=== PATIENT | female | born 1975 | race African-American/Black ===

== ENCOUNTER 2017-03-28 23:30 | Emergency (ER) | payer OTHER ==
[~2017-03-28] VITALS: Ht 157.5 cm; Wt 77.1 kg
[~2017-03-28 23:30] MED LIST: AMLO10TA4 PO; ATOR20TA PO; CARV6.25 PO; GABA-585 PO; INSU100C4 SQ; LOSA1TAB18 PO; METF-620 PO; NITR100C63 PO; ONDA4TAB10 SL; OXYC-323 PO
[2017-03-29] MEDS ORDERED: IV NORMAL SALINE 1000ML BAG 1,000 ML IV SCH (00:45)
[2017-03-29] MEDS ORDERED: MORPHINE SULFATE 2 MG/ML DISP.SYRIN. IV/SQ PRN (00:45)
[2017-03-29] MEDS ORDERED: ONDANSETRON PF 4 MG/2 ML VIAL. IV ONE (00:45)
--- NOTE | 2017-03-29 00:46 | PHYS DOC ---
Past Medical History Past Medical History: Diabetes-Type II, High Cholesterol, Hypertension, Other Additional Past Medical Histor: gastroparesis,Neuropathy Past Surgical History: Tubal ligation, Other Additional Past Surgical Histo: R BKA Alcohol Use: None Drug Use: None Adult General Chief Complaint Chief Complaint: ABDOMINAL PAIN HPI HPI Patient is a 41 year old female who presents with abdominal pain and nausea and vomiting. She started vomiting at 0800 am Tuesday morning. She has been vomiting all day. She has had some loose stool too. No travel; no one else sick at home. Denies bad food exposure. She has abdominal cramping. No blood in emesis or stool. no chest pain or SOA. No fever. Review of Systems Review of Systems Constitutional: Denies fever or chills Eyes: Denies change in visual acuity, redness, or eye pain HENT: Denies nasal congestion or sore throat Respiratory: Denies cough or shortness of breath Cardiovascular: No chest pain GI: POS abdominal pain, POS nausea, vomiting, bloody stools or diarrhea : Denies dysuria or hematuria Musculoskeletal: Denies back pain or joint pain Integument: Denies rash or skin lesions Neurologic: Denies headache, focal weakness or sensory changes Current Medications Current Medications Current Medications Medications (Trade) Dose Ordered Sig/Brandon Start Time Stop Time Status Last Admin Dose Admin Clonidine HCl (Catapres) 0.2 mg 1X ONCE 03/29/17 03:00 03/29/17 03:01 DC 03/29/17 03:13 0.2 MG Diphenhydramine HCl (Benadryl) 25 mg 1X ONCE 03/29/17 01:00 03/29/17 01:01 DC Hydromorphone HCl (Dilaudid) 2 mg 1X ONCE 03/29/17 02:15 03/29/17 02:16 DC 03/29/17 02:07 2 MG Metoclopramide HCl (Reglan) 10 mg 1X ONCE 03/29/17 01:00 03/29/17 01:01 DC Morphine Sulfate 2 mg PRN Q15MIN PRN 03/29/17 00:45 03/30/17 00:44 Ondansetron HCl (Zofran) 4 mg 1X ONCE 03/29/17 00:45 03/29/17 00:46 DC Promethazine HCl (Phenergan Im) 25 mg 1X ONCE 03/29/17 02:15 03/29/17 02:16 DC 03/29/17 02:08 25 MG Sodium Chloride 1,000 ml @ 1,000 mls/hr Q1H 03/29/17 00:45 03/29/17 01:44 DC Allergies Allergies Allergies Coded Allergies Type Severity Reaction Last Updated Verified No Known Drug Allergies 07/28/13 No Physical Exam Physical Exam Constitutional: Well developed, well nourished, no acute distress, non-toxic appearance. HENT: Normocephalic, atraumatic, bilateral external ears normal, oropharynx moist, no oral exudates, nose normal. Eyes: PERRLA, EOMI, conjunctiva normal, no discharge. Neck: Normal range of motion, no tenderness, supple, no stridor. Cardiovascular:Heart rate regular rhythm, no murmur Lungs & Thorax: Bilateral breath sounds clear to auscultation Abdomen: Bowel sounds normal, soft, minimal tenderness, no rebound or guarding. no masses, no pulsatile masses. Skin: Warm, dry, no erythema, no rash. Back: No tenderness, no CVA tenderness. Extremities: No tenderness, no cyanosis, no clubbing, ROM intact, no edema. Neurologic: Alert and oriented X 3, normal motor function, normal sensory function, no focal deficits noted. Psychologic: Affect normal, judgement normal, mood normal. Current Patient Data Vital Signs Vital Signs Date Time Temp Pulse Resp B/P (MAP) Pulse Ox O2 Delivery O2 Flow Rate FiO2 03/29/17 04:15 85 11 132/77 (95) Room Air 03/29/17 03:15 100 Lab Values Laboratory Tests Test 03/28/17 02:00 03/29/17 02:05 03/29/17 02:21 Urine Collection Type Unknown Urine Color Yellow Urine Clarity Clear Urine pH 7.0 Urine Specific [place] 1.020 Urine Protein >=300 mg/dL (NEG-TRACE) Urine Glucose (UA) 500 mg/dL (NEG) Urine Ketones (Stick) Trace mg/dL (NEG) Urine Blood Trace (NEG) Urine Nitrite Negative (NEG) Urine Bilirubin Negative (NEG) Urine Urobilinogen Dipstick 0.2 mg/dL (0.2 mg/dL) Urine Leukocyte Esterase Negative (NEG) Urine RBC Occ /HPF (0-2) Urine WBC Occ /HPF (0-4) Urine Squamous Epithelial Cells Few /LPF Urine Bacteria Few /HPF (0-FEW) Urine Mucus Slight /LPF White Blood Count 17.9 x10^3/uL (4.0-11.0) H Red Blood Count 4.11 x10^6/uL (3.50-5.40) Hemoglobin 10.6 g/dL (12.0-15.5) L Hematocrit 32.2 % (36.0-47.0) L Mean Corpuscular Volume 78 fL (79-100) L Mean Corpuscular Hemoglobin 26 pg (25-35) Mean Corpuscular Hemoglobin Concent 33 g/dL (31-37) Red Cell Distribution Width 17.7 % (11.5-14.5) H Platelet Count 402 x10^3/uL (140-400) H Neutrophils (%) (Auto) 94 % (31-73) H Lymphocytes (%) (Auto) 3 % (24-48) L Monocytes (%) (Auto) 3 % (0-9) Eosinophils (%) (Auto) 0 % (0-3) Basophils (%) (Auto) 0 % (0-3) Neutrophils # (Auto) 16.8 x10^3uL (1.8-7.7) H Lymphocytes # (Auto) 0.6 x10^3/uL (1.0-4.8) L Monocytes # (Auto) 0.4 x10^3/uL (0.0-1.1) Eosinophils # (Auto) 0.0 x10^3/uL (0.0-0.7) Basophils # (Auto) 0.1 x10^3/uL (0.0-0.2) Segmented Neutrophils % 97 % (35-66) H Lymphocytes % 2 % (24-48) L Monocytes % 1 % (0-10) Platelet Estimate Increased (ADEQUATE) Giant Platelets Occ Polychromasia Slight Anisocytosis Slight Sodium Level 137 mmol/L (136-145) Potassium Level 3.2 mmol/L (3.5-5.1) L Chloride Level 96 mmol/L (98-107) L Carbon Dioxide Level 25 mmol/L (21-32) Anion Gap 16 (6-14) H Blood Urea Nitrogen 10 mg/dL (7-20) Creatinine 0.9 mg/dL (0.6-1.0) Estimated GFR (Cockcroft-Gault) 83.1 BUN/Creatinine Ratio 11 (6-20) Glucose Level 262 mg/dL (70-99) H Calcium Level 9.9 mg/dL (8.5-10.1) Total Bilirubin 0.7 mg/dL (0.2-1.0) Aspartate Amino Transferase (AST) 17 U/L (15-37) Alanine Aminotransferase (ALT) 22 U/L (14-59) Alkaline Phosphatase 73 U/L (46-116) Creatine Kinase 202 U/L (26-192) H Creatine Kinase MB (Mass) 1.5 ng/mL (0.0-3.6) Creatine Kinase MB Relative Index 0.7 % (0-4) Troponin I Quantitative < 0.017 ng/mL (0.000-0.055) Total Protein 9.1 g/dL (6.4-8.2) H Albumin 4.7 g/dL (3.4-5.0) Albumin/Globulin Ratio 1.1 (1.0-1.7) Lipase 188 U/L (73-393) POC Urine HCG, Qualitative Hcg negative (Negative) Laboratory Tests 03/29/17 02:05 Laboratory Tests 03/29/17 02:05 Course & Med Decision Making Course & Med Decision Making Evaluated patient when brought back to room (delay due to holding patients and multiple admits). IV ordered but unable to obtain. IM dilaudid and phenergan. Clonidine po (has not taken her BP meds) Lab obtained. Her WBC is elevated. She was here in January and of note her WBC on presentation was 19.8 and then dropped after IV fluids. at 0445 AM: her BP 132/77. She is MARKEDLY IMPROVED. No more pain or vomiting. I OFFERED ADMISSION BUT PATIENT DECLINED. She wanted to try to go home today. I WARNED HER IF SHE WORSENS SHE WOULD NEED ADMISSION. Patient understands. Rx Phenergan sup written as she did not have those at home. [place] po for pain. I have spoken with the patient and/or caregivers. I have explained the patient' s condition, diagnosis and treatment plan based on the information available to me at this time. I have answered the patient's and/or caregiver's questions and addressed any concerns. The patient and/or caregivers have as good an understanding of the patient's diagnosis, condition and treatment plan as can be expected at this point. The patient's condition is stable and appropriate for discharge from the emergency department. The patient will pursue further outpatient evaluation with the primary care physician or other designated or consulting physician as outlined in the discharge instructions. The patient and/or caregivers are agreeable to this plan of care and follow-up instructions have been explained in detail. The patient and/or caregivers have received these instructions in written format and have expressed an understanding of the discharge instructions. The patient and/or caregivers are aware that any significant change in condition or worsening of symptoms should prompt an immediate return to this or the closest emergency department or a call to 911. Dragon Disclaimer Dragon Disclaimer This electronic medical record was generated, in whole or in part, using a voice recognition dictation system. Departure Departure Impression: Primary Impression: Cyclic vomiting syndrome Disposition: 01 HOME, SELF-CARE Condition: IMPROVED Referrals: AUDREY FAGAN MD (PCP) Patient Instructions: Cyclic Vomiting Syndrome Additional Instructions: IF YOUR SYMPTOMS WORSEN YOU NEED TO RETURN IMMEDIATELY Scripts Hydrocodone/Apap 5-325 (NORCO 5-325 TABLET) 1 Each Tablet 1-2 TAB PO Q4-6HRS, #20 TAB Prov: BERTIN ROMAN MD 03/29/17 Promethazine HCl (Phenergan) 25 Mg Supp.rect 25 MG RC PRN Q6-8HRS Y for NAUSEA, #10 SUPP.RECT Prov: BERTIN ROMAN MD 03/29/17 Problem Qualifiers Primary Impression: Cyclic vomiting syndrome Vomiting Intractability: intractable Nausea presence: with nausea Qualified Codes: G43.A1 - Cyclical vomiting, intractable BERTIN ROMAN MD Mar 29, 2017 00:46
[2017-03-29] MEDS ORDERED: diphenhydrAMINE 50 MG/ML VIAL IVP ONE (01:00)
[2017-03-29] MEDS ORDERED: METOCLOPRAMIDE HCL 10 MG/2 ML VIAL. IV ONE (01:00)
[2017-03-29 02:09] LABS: BASO # 0.1 x10^3/uL (0.0-0.2); BASO % 0 % (0-3); EOS % 0 % (0-3); HEMATOCRIT 32.2 % (36.0-47.0); HEMOGLOBIN 10.6 g/dL (12.0-15.5); LYMPH # 0.6 x10^3/uL (1.0-4.8); LYMPH % 3 % (24-48); MEAN CORPUSCULAR HEMOGLOBIN 26 pg (25-35); MEAN CORPUSCULAR HGB CONC 33 g/dL (31-37); MEAN CORPUSCULAR VOLUME 78 fL (79-100); MONO % 3 % (0-9); NEUT % 94 % (31-73); PLATELET COUNT 402 x10^3/uL (140-400); RED BLOOD COUNT 4.11 x10^6/uL (3.50-5.40); RED CELL DISTRIBUTION WIDTH 17.7 % (11.5-14.5); WHITE BLOOD COUNT 17.9 x10^3/uL (4.0-11.0)
[2017-03-29 02:10] LABS: BILIRUBIN,URINE NEGATIVE (NEG); GLUCOSE,URINE 500 mg/dL (NEG); NITRITE,URINE NEGATIVE (NEG); PROTEIN,URINE >=300 mg/dL (NEG-TRACE); UROBILINOGEN,URINE 0.2 mg/dL (0.2 mg/dL)
[2017-03-29] MEDS ORDERED: HYDROmorphone 2 MG/ML VIAL IM ONE (02:15)
[2017-03-29] MEDS ORDERED: PROMETHAZINE IM 25 MG/ML VIAL IM ONE (02:15)
[2017-03-29 02:17] LABS: BACTERIA,URINE FEW /HPF (0-FEW); RBC,URINE OCC /HPF (0-2); SQUAMOUS EPITHELIAL CELL,UR FEW /LPF; WBC,URINE OCC /HPF (0-4)
[2017-03-29 02:23] LABS: CALCIUM 9.9 mg/dL (8.5-10.1); CREATININE 0.9 mg/dL (0.6-1.0); GFR 83.1; POTASSIUM 3.2 mmol/L (3.5-5.1)
[2017-03-29 02:29] LABS: ALBUMIN 4.7 g/dL (3.4-5.0); ALBUMIN/GLOBULIN RATIO 1.1 (1.0-1.7); TOTAL BILIRUBIN 0.7 mg/dL (0.2-1.0); TOTAL PROTEIN 9.1 g/dL (6.4-8.2)
[2017-03-29 02:37] LABS: CKMB MASS 1.5 ng/mL (0.0-3.6)
[2017-03-29] MEDS ORDERED: cloNIDine HCL 0.1 MG TABLET PO ONE (03:00)
[2017-03-29 04:15] VITALS: BP 132/77
[2017-03-29] MEDS ORDERED: PROM25SU32 RC (04:55)
[2017-03-29] MEDS ORDERED: HYDR-971 PO (04:55)
[2017-03-29 04:56] LABS: ANISOCYTOSIS SLIGHT; PLT ESTIMATE INCREASED (ADEQUATE); POLYCHROMASIA SLIGHT
== END 2017-03-29 06:19 | disposition home or self-care (01) ==
LOC: ER 23:30
DX: G43.A1 Cyclical vomiting, in migraine, intractable (principal); R10.9 Unspecified abdominal pain; E78.00 Pure hypercholesterolemia, unspecified; E11.40 Type 2 diabetes mellitus with diabetic neuropathy, unspecified; I10 Essential (primary) hypertension; E11.43 Type 2 diabetes mellitus with diabetic autonomic (poly)neuropathy; K31.84 Gastroparesis; Z89.511 Acquired absence of right leg below knee; Z98.51 Tubal ligation status
CPT/HCPCS: 36415; 80053; 81001; 81025; 82553; 83690; 84484; 85007; 85025; 96372; 99284; J1170; J2550

== ENCOUNTER 2018-09-11 12:41 | Inpatient (IN) | payer MEDICARE, OTHER ==
[~2018-09-11] VITALS: Ht 160 cm; Wt 77.6 kg
[~2018-09-11 12:41] MED LIST changes: +HYDR-3164 PO; -LOSA1TAB18 PO; +LOSA1TAB25 PO; -METF-620 PO; +METF10007 PO; -OXYC-323 PO; +OXYC1TAB15 PO; +PROM25SU32 RC
[2018-09-11] MEDS ORDERED: IV NORMAL SALINE 1000ML BAG 1,000 ML IV ONE ×3 (14:00→17:45)
[2018-09-11] MEDS ORDERED: PROCHLORPERAZINE 10 MG/2 ML VIAL. IV ONE (14:00)
[2018-09-11] MEDS ORDERED: ONDANSETRON PF 4 MG/2 ML VIAL. IV ONE ×2 (14:00→17:15)
[2018-09-11] MEDS ORDERED: FAMOTIDINE 20 MG/2 ML VIAL IVP ONE (14:00)
[2018-09-11 14:10] LABS: BASO # 0.1 x10^3/uL (0.0-0.2); BASO % 0 % (0-3); EOS # 0.1 x10^3/uL (0.0-0.7); EOS % 0 % (0-3); HEMATOCRIT 40.4 % (36.0-47.0); HEMOGLOBIN 13.6 g/dL (12.0-15.5); LYMPH # 1.1 x10^3/uL (1.0-4.8); LYMPH % 4 % (24-48); MEAN CORPUSCULAR HEMOGLOBIN 28 pg (25-35); MEAN CORPUSCULAR HGB CONC 34 g/dL (31-37); MEAN CORPUSCULAR VOLUME 83 fL (79-100); MONO # 1.4 x10^3/uL (0.0-1.1); MONO % 5 % (0-9); NEUT # 24.4 x10^3uL (1.8-7.7); NEUT % 90 % (31-73); PLATELET COUNT 409 x10^3/uL (140-400); RED BLOOD COUNT 4.89 x10^6/uL (3.50-5.40); RED CELL DISTRIBUTION WIDTH 16.5 % (11.5-14.5); WHITE BLOOD COUNT 27.1 x10^3/uL (4.0-11.0)
[2018-09-11 14:27] LABS: CALCIUM 9.8 mg/dL (8.5-10.1); CREATININE 0.9 mg/dL (0.6-1.0); GFR 82.7; POTASSIUM 3.5 mmol/L (3.5-5.1)
[2018-09-11 14:31] LABS: ALBUMIN 4.2 g/dL (3.4-5.0); ALBUMIN/GLOBULIN RATIO 0.8 (1.0-1.7); TOTAL BILIRUBIN 0.8 mg/dL (0.2-1.0); TOTAL PROTEIN 9.4 g/dL (6.4-8.2)
[2018-09-11] MEDS ORDERED: IOHEXOL 300 MG/ML 100ML VIAL. IV ONE (15:30)
--- NOTE | 2018-09-11 16:24 | RAD ---
CT abdomen pelvis without contrast dated 09/11/2018. Comparison made to 03/23/2014. CLINICAL INDICATION: Abdominal pain. TECHNIQUE: Per contiguous axial imaging of the abdomen and pelvis performed after the intravenous administration of 75 cc Omnipaque 300. The scanner failed after initial injection, therefore delayed imaging was performed. One or more of the following individualized dose reduction techniques were utilized for this examination: 1. Automated exposure control 2. Adjustment of the mA and/or kV according to patient size 3. Use of iterative reconstruction technique FINDINGS: Limited images of lung bases show patchy groundglass opacity in the right middle lobe and left lower lobe. Heart size upper limits of normal. No pleural or pericardial effusion. Liver, spleen, pancreas, adrenal glands and kidneys are unremarkable. There is contrast material filling the bilateral renal collecting systems. A low-density nodule at the upper pole left kidney is most consistent with cyst. No hydronephrosis. Unopacified GI tract normal in caliber and contour. No focal bowel wall thickening. No inflammatory stranding in the mesentery. The appendix is normal in caliber. No ascites or lymphadenopathy. Abdominal aorta normal in caliber. Images of pelvis show nondistended urinary bladder. Uterus and adnexa are unremarkable. No free fluid or pelvic lymphadenopathy. Bone windows show no acute findings. Mild multilevel spondylosis. IMPRESSION: 1. No acute abnormality of abdomen or pelvis. Normal appendix. 2. Mild patchy groundglass passive both lung bases, nonspecific. Consider infectious or inflammatory etiology. Electronically signed by: Los Dickinson MD (09/11/2018 4:21 PM) [id number]
[2018-09-11] MEDS ORDERED: METOCLOPRAMIDE HCL 10 MG/2 ML VIAL. IV ONE (17:00)
--- NOTE | 2018-09-11 17:17 | PHYS DOC ---
Past Medical History Past Medical History: Diabetes-Type II, High Cholesterol, Hypertension, Other Additional Past Medical Histor: gastroparesis,Neuropathy Past Surgical History: Tubal ligation, Other Additional Past Surgical Histo: R BKA Alcohol Use: None Drug Use: None Adult General Chief Complaint Chief Complaint: ABDOMINAL PAIN HPI HPI Patient is a 42 year old female with history of diabetes type 2, hypertension, gastroparesis, high cholesterol, right below the knee amputation, who presents to the ED today complaining of nausea, vomiting, and epigastric abdominal pain since yesterday. Patient states she has tried taking her Zofran with no relief. She states she is currently not on any diabetes medicine because her doctor took her off the medications after her blood glucose got stabilized. Review of Systems Review of Systems Constitutional: Denies fever or chills [] Eyes: Denies change in visual acuity, redness, or eye pain [] HENT: Denies nasal congestion or sore throat [] Respiratory: Denies cough or shortness of breath [] Cardiovascular: No additional information not addressed in HPI [] GI: Reports abdominal pain, nausea, vomiting, epigastric pain, denies bloody stools or diarrhea [] : Denies dysuria or hematuria [] Musculoskeletal: Denies back pain or joint pain [] Integument: Denies rash or skin lesions [] Neurologic: Denies headache, focal weakness or sensory changes [] All other systems were reviewed and found to be within normal limits, except as documented in this note. Current Medications Current Medications Current Medications Medications (Trade) Dose Ordered Sig/Brandon Start Time Stop Time Status Last Admin Dose Admin Famotidine (Pepcid Vial) 20 mg 1X ONCE 09/11/18 14:00 09/11/18 14:01 DC 09/11/18 14:06 20 MG Iohexol (Omnipaque 300 Mg/ml) 75 ml 1X ONCE 09/11/18 15:30 09/11/18 15:31 DC 09/11/18 15:34 75 ML Metoclopramide HCl (Reglan Vial) 10 mg 1X ONCE 09/11/18 17:00 09/11/18 17:01 DC Ondansetron HCl (Zofran) 4 mg 1X ONCE 09/11/18 17:15 09/11/18 17:16 DC 09/11/18 17:13 4 MG Prochlorperazine Edisylate (Compazine) 10 mg 1X ONCE 09/11/18 14:00 09/11/18 14:01 DC 09/11/18 14:06 10 MG Sodium Chloride 1,000 ml @ 1,000 mls/hr 1X ONCE 09/11/18 15:30 09/11/18 16:29 DC 09/11/18 16:02 1,000 MLS/HR Allergies Allergies Allergies Coded Allergies Type Severity Reaction Last Updated Verified metoclopramide Allergy Intermediate 09/11/18 Yes Physical Exam Physical Exam Constitutional: Well developed, well nourished, no acute distress, non-toxic appearance. [] HENT: Normocephalic, atraumatic, bilateral external ears normal, oropharynx moist, no oral exudates, nose normal. [] Eyes: PERRLA, EOMI, conjunctiva normal, no discharge. [] Neck: Normal range of motion, no tenderness, supple, no stridor. [] Cardiovascular:Heart rate regular rhythm, no murmur [] Lungs & Thorax: Bilateral breath sounds clear to auscultation [] Abdomen: Bowel sounds normal, soft, mild epigastric tenderness, no right upper quadrant or right lower quadrant tenderness, no masses, no pulsatile masses. [] Skin: Warm, dry, no erythema, no rash. [] Back: No tenderness, no CVA tenderness. [] Extremities: No tenderness, no cyanosis, no clubbing, ROM intact, no edema. Right below the knee amputation noted. Neurologic: Alert and oriented X 3, normal motor function, normal sensory function, no focal deficits noted. [] Psychologic: anxious Current Patient Data Vital Signs Vital Signs Date Time Temp Pulse Resp B/P (MAP) Pulse Ox O2 Delivery O2 Flow Rate FiO2 09/11/18 13:11 99.3 125 20 166/109 (128) 100 Room Air 99.3 Lab Values Laboratory Tests Test 09/11/18 13:55 White Blood Count 27.1 x10^3/uL (4.0-11.0) H Red Blood Count 4.89 x10^6/uL (3.50-5.40) Hemoglobin 13.6 g/dL (12.0-15.5) Hematocrit 40.4 % (36.0-47.0) Mean Corpuscular Volume 83 fL (79-100) Mean Corpuscular Hemoglobin 28 pg (25-35) Mean Corpuscular Hemoglobin Concent 34 g/dL (31-37) Red Cell Distribution Width 16.5 % (11.5-14.5) H Platelet Count 409 x10^3/uL (140-400) H Neutrophils (%) (Auto) 90 % (31-73) H Lymphocytes (%) (Auto) 4 % (24-48) L Monocytes (%) (Auto) 5 % (0-9) Eosinophils (%) (Auto) 0 % (0-3) Basophils (%) (Auto) 0 % (0-3) Neutrophils # (Auto) 24.4 x10^3uL (1.8-7.7) H Lymphocytes # (Auto) 1.1 x10^3/uL (1.0-4.8) Monocytes # (Auto) 1.4 x10^3/uL (0.0-1.1) H Eosinophils # (Auto) 0.1 x10^3/uL (0.0-0.7) Basophils # (Auto) 0.1 x10^3/uL (0.0-0.2) Sodium Level 136 mmol/L (136-145) Potassium Level 3.5 mmol/L (3.5-5.1) Chloride Level 95 mmol/L (98-107) L Carbon Dioxide Level 24 mmol/L (21-32) Anion Gap 17 (6-14) H Blood Urea Nitrogen 18 mg/dL (7-20) Creatinine 0.9 mg/dL (0.6-1.0) Estimated GFR (Cockcroft-Gault) 82.7 BUN/Creatinine Ratio 20 (6-20) Glucose Level 165 mg/dL (70-99) H Calcium Level 9.8 mg/dL (8.5-10.1) Total Bilirubin 0.8 mg/dL (0.2-1.0) Aspartate Amino Transferase (AST) 28 U/L (15-37) Alanine Aminotransferase (ALT) 13 U/L (14-59) L Alkaline Phosphatase 82 U/L (46-116) Total Protein 9.4 g/dL (6.4-8.2) H Albumin 4.2 g/dL (3.4-5.0) Albumin/Globulin Ratio 0.8 (1.0-1.7) L Lipase 71 U/L (73-393) L Ethyl Alcohol Level < 10 mg/dL (0-10) Laboratory Tests 09/11/18 13:55 Laboratory Tests 09/11/18 13:55 EKG EKG [] Radiology/Procedures Radiology/Procedures []PROCEDURE: CT ABD PELV W/ IV CONTRST ONLY CT abdomen pelvis without contrast dated 09/11/2018. Comparison made to 03/23/2014. CLINICAL INDICATION: Abdominal pain. TECHNIQUE: Per contiguous axial imaging of the abdomen and pelvis performed after the intravenous administration of 75 cc Omnipaque 300. The scanner failed after initial injection, therefore delayed imaging was performed. One or more of the following individualized dose reduction techniques were utilized for this examination: 1. Automated exposure control 2. Adjustment of the mA and/or kV according to patient size 3. Use of iterative reconstruction technique FINDINGS: Limited images of lung bases show patchy groundglass opacity in the right middle lobe and left lower lobe. Heart size upper limits of normal. No pleural or pericardial effusion. Liver, spleen, pancreas, adrenal glands and kidneys are unremarkable. There is contrast material filling the bilateral renal collecting systems. A low-density nodule at the upper pole left kidney is most consistent with cyst. No hydronephrosis. Unopacified GI tract normal in caliber and contour. No focal bowel wall thickening. No inflammatory stranding in the mesentery. The appendix is normal in caliber. No ascites or lymphadenopathy. Abdominal aorta normal in caliber. Images of pelvis show nondistended urinary bladder. Uterus and adnexa are unremarkable. No free fluid or pelvic lymphadenopathy. Bone windows show no acute findings. Mild multilevel spondylosis. IMPRESSION: 1. No acute abnormality of abdomen or pelvis. Normal appendix. 2. Mild patchy groundglass passive both lung bases, nonspecific. Consider infectious or inflammatory etiology. Electronically signed by: Los Dickinson MD (09/11/2018 4:21 PM) [id number] DICTATED and SIGNED BY: LOS DICKINSON MD DATE: 09/11/18 162 Course & Med Decision Making Course & Med Decision Making Pertinent Labs and Imaging studies reviewed. (See chart for details) This is a 42-year-old female patient presenting to the ED today with nausea, vomiting, epigastric abdominal pain, symptoms began yesterday. Patient has history of gastroparesis. CBC with a WBC of 27.1 platelet count 409, CMP with glucose of 165, anion gap is 17, creatinine and BUN are normal. Urine not provided. Patient does not appear septic. I suspect the leukocytosis could be from the vomiting and dehydration. Ct of the abdomen and pelvic is negative for any acute findings. Noted for Mild patchy groundglass passive both lung bases, nonspecific. Consider infectious or inflammatory etiology.-chest xray ordered. Patient was given IV fluids 2 L compazine, zofran she is still vomiting. Consulted with Dr. Olivarez who accepted patient for admission. Dragon Disclaimer Dragon Disclaimer This electronic medical record was generated, in whole or in part, using a voice recognition dictation system. Departure Departure Impression: Primary Impression: Hypertension Additional Impressions: Gastroparesis Intractable nausea and vomiting Disposition: ADMITTED INPATIENT Condition: STABLE Referrals: AUDREY FAGAN MD (PCP) Problem Qualifiers Primary Impression: Hypertension Hypertension type: unspecified Qualified Codes: I10 - Essential (primary) hypertension Additional Impressions: Intractable nausea and vomiting Vomiting type: unspecified Qualified Codes: R11.2 - Nausea with vomiting, unspecified RUSS RAMÍREZ STOCK FEEDER Sep 11, 2018 17:17
--- NOTE | 2018-09-11 17:34 | RAD ---
Single view chest dated 09/11/2018: No comparison available. Clinical Indication: Epigastric pain. Findings: Single upright portable exam of the chest was performed. Heart size and mediastinal contours are within normal limits given technique. The lungs are clear without evidence of focal consolidation. Vascular interstitium is within normal limits. Impression:: Negative portable chest. Electronically signed by: Los Dickinson MD (09/11/2018 5:32 PM) [id number]
[2018-09-11] MEDS ORDERED: PROCHLORPERAZINE 10 MG/2 ML VIAL. IV PRN (17:45)
[2018-09-11] MEDS ORDERED: ONDANSETRON PF 4 MG/2 ML VIAL. IV PRN ×2 (17:45)
--- NOTE | 2018-09-11 17:51 | PDOC1 ---
History and Physical Date of Admission Date of Admission DATE: 09/11/18 TIME: 17:46 Identification/Chief Complaint Chief Complaint Vomiting 3 days, one episode diarrhea Source Source: Caregiver, Chart review, Patient History of Present Illness History of Present Illness 42-year-old -[place] female whom in the past charts carries a diagnosis of gastroparesis, last gastric empty test was maybe 2013 or 2014 which was delayed, cyclic vomiting syndrome per old chart. Last time I saw her was maybe 2016. She admits that she goes to usually. She comes in because of 3 day history emesis with one episode diarrhea but no fevers. No recent sick contacts or travels. She thinks is another episode of her gastroparesis. She is curling up, bucket at bedside. . CT scan abdomen is negative. labs shows a leukocytosis of 27.1 with no source. Not on any prednisone at home Her home meds only include the following Norvasc 10, Coreg 12.5 twice a day, Zofran, Zoloft 50 daily at bedtime and gabapentin 100 twice a day. Patient admitted for symptomatically treatment with GI consulted. SHe is actually off insulin or OHA because her last hemoglobin A1c was very good and she was taken off of any DM medication Past Medical History Cardiovascular: HTN GI: Other Psych: Depression Endocrine: Diabetes Past Surgical History Past Surgical History: Other Family History Family History: Cancer, Diabetes, Hypertension Social History Smoke: No ALCOHOL: none Drugs: None Current Problem List Problem List Problems Medical Problems: (1) Gastroparesis Status: Acute (2) Hypertension Status: Acute Current Medications Current Medications Current Medications Sodium Chloride 1,000 ml @ 1,000 mls/hr 1X ONCE IV Last administered on at 14:06; Start 09/11/18 at 14:00; Stop 09/11/18 at 14:59; Status DC Famotidine (Pepcid Vial) 20 mg 1X ONCE IVP Last administered on 09/11/18at 14: 06; Start 09/11/18 at 14:00; Stop 09/11/18 at 14:01; Status DC Ondansetron HCl (Zofran) 4 mg 1X ONCE IV Last administered on 09/11/18at 14:06 ; Start 09/11/18 at 14:00; Stop 09/11/18 at 14:01; Status DC Prochlorperazine Edisylate (Compazine) 10 mg 1X ONCE IV Last administered on at 14:06; Start 09/11/18 at 14:00; Stop 09/11/18 at 14:01; Status DC Iohexol (Omnipaque 300 Mg/ml) 75 ml 1X ONCE IV Last administered on 09/11/18at 15:34; Start 09/11/18 at 15:30; Stop 09/11/18 at 15:31; Status DC Sodium Chloride 1,000 ml @ 1,000 mls/hr 1X ONCE IV Last administered on at 16:02; Start 09/11/18 at 15:30; Stop 09/11/18 at 16:29; Status DC Metoclopramide HCl (Reglan Vial) 10 mg 1X ONCE IV ; Start 09/11/18 at 17:00; Stop 09/11/18 at 17:01; Status DC Ondansetron HCl (Zofran) 4 mg 1X ONCE IV Last administered on 09/11/18at 17:13 ; Start 09/11/18 at 17:15; Stop 09/11/18 at 17:16; Status DC Ondansetron HCl (Zofran) 4 mg PRN Q8HRS PRN IV NAUSEA/VOMITING; Start 09/11/18 at 17:45; Stop 09/11/18 at 17:45; Status DC Prochlorperazine Edisylate (Compazine) 10 mg TID PRN IV NAUSEA; Start 09/11/18 at 17:45 Sodium Chloride 1,000 ml @ 125 mls/hr 1X ONCE IV ; Start 09/11/18 at 17:45; Stop 09/12/18 at 01:44 Ondansetron HCl (Zofran) 4 mg PRN Q6HRS PRN IV NAUSEA/VOMITING; Start 09/11/18 at 17:45; Status UNV Ondansetron HCl (Zofran) 4 mg PRN Q6HRS PRN IV NAUSEA/VOMITING; Start 09/11/18 at 17:45; Status UNV Metoclopramide HCl (Reglan) 5 mg TIDACHC PO ; Start 09/11/18 at 21:00; Status UNV Sodium Chloride 1,000 ml @ 100 mls/hr Q10H IV ; Start 09/11/18 at 17:45; Status UNV Active Scripts Active [place] 5-325 Tablet (Acetaminophen/Hydrocodone Bitart) 1 Each Tablet 1-2 Tab PO Q4-6HRS Phenergan (Promethazine HCl) 25 Mg Supp.rect 25 Mg RC PRN Q6-8HRS PRN Reported Novolog (Insulin Aspart) 100 Unit/1 Ml Cartridge 8 Unit SQ TIDAFTMEAL PRN Percocet 5-325 Mg Tablet (Oxycodone/Acetaminophen) 1 Each Tablet 1 Tab PO QID Coreg (Carvedilol) 6.25 Mg Tablet 1 Tab PO BID Lipitor (Atorvastatin Calcium) 20 Mg Tablet 1 Tab PO DAILY Losartan-Hctz 100-12.5 Mg Tab (Losartan/Hydrochlorothiazide) 1 Each Tablet 1 Tab PO DAILY Gabapentin 100 Mg Capsule 100 Mg PO TID Zofran Odt (Ondansetron) 4 Mg Tab.rapdis 1 Tab SL Q8HRS Norvasc (Amlodipine Besylate) 10 Mg Tablet 10 Mg PO DAILY Metformin Hcl 1,000 Mg Tablet 1,000 Mg PO [id number] Allergies Allergies: Coded Allergies: metoclopramide (Verified Allergy, Intermediate, 09/11/18) ROS Review of System As per history of present illness, the rest of ROS 14 point negative Physical Exam General: Alert, Oriented X3, Cooperative, Other (curling up with bucket at bedside) HEENT: PERRLA Lungs: Clear to auscultation, Normal air movement Heart: S1S2, RRR, no thrills, no rubs, no gallops, no murmurs Cardiovascular: S1, S2 Breasts: Normal, Rt breast nml w/o mass, Lt breast nml w/o mass, Nipples normal Abdomen: Normal bowel sounds, Soft, No hepatosplenomegaly, No masses, Other ( voluntary guarding on my palpation but soft no rebound) Rectal Exam: not examined PELVIC: Nml ext genitalia Extremities: No clubbing, No cyanosis, No edema, Normal pulses, No tenderness/ swelling Skin: No rashes, No breakdown, No significant lesion Neuro: Normal gait, Normal speech, Strength at 5/5 X4 ext, Normal tone, Sensation intact, Cranial nerves 3-12 NL, Reflexes 2+ Psych/Mental Status: Mental status NL, Mood NL Vitals Vitals Vital Signs Date Time Temp Pulse Resp B/P (MAP) Pulse Ox O2 Delivery O2 Flow Rate FiO2 09/11/18 13:11 99.3 125 20 166/109 (128) 100 Room Air 99.3 Labs Labs Laboratory Tests Test 09/11/18 13:55 White Blood Count 27.1 x10^3/uL (4.0-11.0) Red Blood Count 4.89 x10^6/uL (3.50-5.40) Hemoglobin 13.6 g/dL (12.0-15.5) Hematocrit 40.4 % (36.0-47.0) Mean Corpuscular Volume 83 fL (79-100) Mean Corpuscular Hemoglobin 28 pg (25-35) Mean Corpuscular Hemoglobin Concent 34 g/dL (31-37) Red Cell Distribution Width 16.5 % (11.5-14.5) Platelet Count 409 x10^3/uL (140-400) Neutrophils (%) (Auto) 90 % (31-73) Lymphocytes (%) (Auto) 4 % (24-48) Monocytes (%) (Auto) 5 % (0-9) Eosinophils (%) (Auto) 0 % (0-3) Basophils (%) (Auto) 0 % (0-3) Neutrophils # (Auto) 24.4 x10^3uL (1.8-7.7) Lymphocytes # (Auto) 1.1 x10^3/uL (1.0-4.8) Monocytes # (Auto) 1.4 x10^3/uL (0.0-1.1) Eosinophils # (Auto) 0.1 x10^3/uL (0.0-0.7) Basophils # (Auto) 0.1 x10^3/uL (0.0-0.2) Sodium Level 136 mmol/L (136-145) Potassium Level 3.5 mmol/L (3.5-5.1) Chloride Level 95 mmol/L (98-107) Carbon Dioxide Level 24 mmol/L (21-32) Anion Gap 17 (6-14) Blood Urea Nitrogen 18 mg/dL (7-20) Creatinine 0.9 mg/dL (0.6-1.0) Estimated GFR (Cockcroft-Gault) 82.7 BUN/Creatinine Ratio 20 (6-20) Glucose Level 165 mg/dL (70-99) Calcium Level 9.8 mg/dL (8.5-10.1) Total Bilirubin 0.8 mg/dL (0.2-1.0) Aspartate Amino Transf (AST/SGOT) 28 U/L (15-37) Alanine Aminotransferase (ALT/SGPT) 13 U/L (14-59) Alkaline Phosphatase 82 U/L (46-116) Total Protein 9.4 g/dL (6.4-8.2) Albumin 4.2 g/dL (3.4-5.0) Albumin/Globulin Ratio 0.8 (1.0-1.7) Lipase 71 U/L (73-393) Ethyl Alcohol Level < 10 mg/dL (0-10) Laboratory Tests Test 09/11/18 13:55 White Blood Count 27.1 x10^3/uL (4.0-11.0) Red Blood Count 4.89 x10^6/uL (3.50-5.40) Hemoglobin 13.6 g/dL (12.0-15.5) Hematocrit 40.4 % (36.0-47.0) Mean Corpuscular Volume 83 fL (79-100) Mean Corpuscular Hemoglobin 28 pg (25-35) Mean Corpuscular Hemoglobin Concent 34 g/dL (31-37) Red Cell Distribution Width 16.5 % (11.5-14.5) Platelet Count 409 x10^3/uL (140-400) Neutrophils (%) (Auto) 90 % (31-73) Lymphocytes (%) (Auto) 4 % (24-48) Monocytes (%) (Auto) 5 % (0-9) Eosinophils (%) (Auto) 0 % (0-3) Basophils (%) (Auto) 0 % (0-3) Neutrophils # (Auto) 24.4 x10^3uL (1.8-7.7) Lymphocytes # (Auto) 1.1 x10^3/uL (1.0-4.8) Monocytes # (Auto) 1.4 x10^3/uL (0.0-1.1) Eosinophils # (Auto) 0.1 x10^3/uL (0.0-0.7) Basophils # (Auto) 0.1 x10^3/uL (0.0-0.2) Sodium Level 136 mmol/L (136-145) Potassium Level 3.5 mmol/L (3.5-5.1) Chloride Level 95 mmol/L (98-107) Carbon Dioxide Level 24 mmol/L (21-32) Anion Gap 17 (6-14) Blood Urea Nitrogen 18 mg/dL (7-20) Creatinine 0.9 mg/dL (0.6-1.0) Estimated GFR (Cockcroft-Gault) 82.7 BUN/Creatinine Ratio 20 (6-20) Glucose Level 165 mg/dL (70-99) Calcium Level 9.8 mg/dL (8.5-10.1) Total Bilirubin 0.8 mg/dL (0.2-1.0) Aspartate Amino Transf (AST/SGOT) 28 U/L (15-37) Alanine Aminotransferase (ALT/SGPT) 13 U/L (14-59) Alkaline Phosphatase 82 U/L (46-116) Total Protein 9.4 g/dL (6.4-8.2) Albumin 4.2 g/dL (3.4-5.0) Albumin/Globulin Ratio 0.8 (1.0-1.7) Lipase 71 U/L (73-393) Ethyl Alcohol Level < 10 mg/dL (0-10) VTE Prophylaxis Ordered VTE Prophylaxis Devices: Yes VTE Pharmacological Prophylaxi: Yes Assessment/Plan Assessment/Plan Possibly another attack of gastroparesis Cyclic vomiting syndrome history Diabetes off insulin or OHA because of good hemoglobin A1c Narcotic tolerant Leukocytosis-check a UA, check a sedimentation rate Reactive thrombocyte doses, platelets 409 Plan: Admit 2 MN nothing by mouth, hydrate, so far lytes are okay Okay to have sips with meds Labetolol when necessary for accelerated hypertension Check a gastric emptying test since it's been a while Trial of Reglan No signs of obstruction on CAT scan: Other supportive meds I have reconciled home meds Monitor that leukocytosis and thrombocytosis Add a sedimentation rate NICO THAKUR MD Sep 11, 2018 17:51
[2018-09-11] MEDS ORDERED: PIPERACILLIN/TAZOBACTAM 3.375 GM in IV NORMAL SALINE 50ML 50 ML IV ONE (18:00)
[2018-09-11] MEDS ORDERED: VANCOMYCIN 2 GM in IV NORMAL SALINE 500ML BAG 500 ML IV ONE (18:00)
[2018-09-11] MEDS ORDERED: VANCOMYCIN PER PHARMACY MC PRN (18:00)
[2018-09-11 20:10] VITALS: BP 155/111
[2018-09-11] MEDS: METOCLOPRAMIDE 5 MG TABLET. PO SCH (21:00)
[2018-09-11] MEDS ORDERED: GABAPENTIN 100 MG CAPSULE. PO SCH (21:00)
[2018-09-11] MEDS: fentaNYL PF VIAL 100 MCG/2 ML VIAL IV PRN (21:25)
[2018-09-11 23:25] VITALS: BP 195/116
[2018-09-12] MEDS: LABETALOL 20 MG/4 ML DISP.SYRIN. IVP PRN ×2 (00:39→04:15)
[2018-09-12] MEDS: fentaNYL PF VIAL 100 MCG/2 ML VIAL IV PRN ×4 (00:46→15:11)
[2018-09-12] MEDS: IV NORMAL SALINE 1000ML BAG 1,000 ML IV SCH ×3 (01:31→17:44)
[2018-09-12 03:25] VITALS: BP 186/115
[2018-09-12 07:00] VITALS: BP 177/109
[2018-09-12] MEDS: METOCLOPRAMIDE 5 MG TABLET. PO SCH ×4 (07:30→21:00)
[2018-09-12 07:43] LABS: BASO % 0 % (0-3); EOS % 0 % (0-3); HEMATOCRIT 34.9 % (36.0-47.0); HEMOGLOBIN 11.7 g/dL (12.0-15.5); LYMPH # 0.9 x10^3/uL (1.0-4.8); LYMPH % 6 % (24-48); MEAN CORPUSCULAR HEMOGLOBIN 28 pg (25-35); MEAN CORPUSCULAR HGB CONC 34 g/dL (31-37); MEAN CORPUSCULAR VOLUME 84 fL (79-100); MONO % 6 % (0-9); NEUT # 14.4 x10^3uL (1.8-7.7); NEUT % 88 % (31-73); PLATELET COUNT 309 x10^3/uL (140-400); RED BLOOD COUNT 4.16 x10^6/uL (3.50-5.40); RED CELL DISTRIBUTION WIDTH 16.7 % (11.5-14.5); WHITE BLOOD COUNT 16.3 x10^3/uL (4.0-11.0)
[2018-09-12] MEDS ORDERED: LABETALOL 20 MG/4 ML DISP.SYRIN. IVP PRN (07:45)
[2018-09-12] MEDS: CARVEDILOL 6.25 MG TABLET. PO SCH ×3 (07:53→15:11)
[2018-09-12 07:55] LABS: ALBUMIN 3.3 g/dL (3.4-5.0); ALBUMIN/GLOBULIN RATIO 0.7 (1.0-1.7); CALCIUM 8.8 mg/dL (8.5-10.1); CREATININE 0.7 mg/dL (0.6-1.0); GFR 110.5; TOTAL BILIRUBIN 0.7 mg/dL (0.2-1.0); TOTAL PROTEIN 7.8 g/dL (6.4-8.2)
[2018-09-12] MEDS ORDERED: CARVEDILOL 12.5 MG TABLET. PO SCH (08:00)
[2018-09-12 08:04] LABS: % BANDS 1 % (0-9); % LYMPHS 8 % (24-48); % MONOS 4 % (0-10); % SEGS 87 % (35-66); PLT ESTIMATE ADEQUATE (ADEQUATE)
[2018-09-12] MEDS: oxyCODONE/APAP 5/325 1 TAB TABLET PO SCH ×4 (09:00→22:28)
[2018-09-12] MEDS: amLODIPine BESYLATE 10 MG TABLET PO SCH ×2 (09:00→17:39)
[2018-09-12] MEDS: LOSARTAN POTASSIUM 50 MG TABLET. PO SCH ×2 (09:00→17:40)
[2018-09-12] MEDS ORDERED: amLODIPine BESYLATE 10 MG TABLET PO SCH (09:00)
[2018-09-12] MEDS: SERTRALINE 50 MG TABLET. PO SCH (09:00)
[2018-09-12] MEDS: hydroCHLOROthiazide 12.5 MG CAPSULE PO SCH (09:00)
[2018-09-12] MEDS: GABAPENTIN 100 MG CAPSULE. PO SCH ×3 (09:00→22:27)
--- NOTE | 2018-09-12 10:29 | PDOC2 ---
GI CONSULT Reason For Consult: Gastroparesis HPI: HPI: 42 y/o female who we have seen in the past. Reports a "gastroparesis episode" since Tuesday evening w/ n/v, abd/back pain, and diarrhea (which has improved). Has been having episodes monthly prior to menstruation. H/o DM now off meds w/ improvement of A1c. Last EGD and GES at ~15 years ago. Takes Zofran PRN at home, no acid-reducers. Past use of Reglan and e-mycin not tolerated ( dizziness and upset stomach respectively). PCP is through but does not see GI. Some h/o irregular bowel habits - stable. No bleeding. No previous colonoscopy. Takes Percocet PRN for back pain and phantom leg pain. Occasional NSAID use. Denies PUD, GB, pancreas, and liver history. Had normal RUQ US in 2017. Feels better this morning, says is NPO for GES. PMH: PMH: HTN, DM, GERD, gastroparesis, UTI, nephrolithiasis, depression, anxiety, left renal angiomyolipoma tubal ligation, right BKA FH: Family History: No pertinent hx Social History: Smoke: No ALCOHOL: none Drugs: None ROS: GEN: Denies fevers, chills, sweats HEENT: Denies blurred vision, sore throat CV: Denies chest pain RESP: Denies shortness of air, cough GI: Per HPI : Denies hematuria, dysuria ENDO: Denies weight changes NEURO: Denies confusion, dizziness MSK: +back pain, phantom leg pain SKIN: Denies jaundice, pruritus Vitals: Vitals: Vital Signs Date Time Temp Pulse Resp B/P (MAP) Pulse Ox O2 Delivery O2 Flow Rate FiO2 09/12/18 08:47 107 177/109 09/12/18 07:54 18 Room Air 09/12/18 07:00 98.4 100 98.4 Labs: Labs: Laboratory Tests Test 09/11/18 13:55 09/11/18 20:25 09/12/18 06:53 White Blood Count 27.1 x10^3/uL (4.0-11.0) 16.3 x10^3/uL (4.0-11.0) Red Blood Count 4.89 x10^6/uL (3.50-5.40) 4.16 x10^6/uL (3.50-5.40) Hemoglobin 13.6 g/dL (12.0-15.5) 11.7 g/dL (12.0-15.5) Hematocrit 40.4 % (36.0-47.0) 34.9 % (36.0-47.0) Mean Corpuscular Volume 83 fL (79-100) 84 fL (79-100) Mean Corpuscular Hemoglobin 28 pg (25-35) 28 pg (25-35) Mean Corpuscular Hemoglobin Concent 34 g/dL (31-37) 34 g/dL (31-37) Red Cell Distribution Width 16.5 % (11.5-14.5) 16.7 % (11.5-14.5) Platelet Count 409 x10^3/uL (140-400) 309 x10^3/uL (140-400) Neutrophils (%) (Auto) 90 % (31-73) 88 % (31-73) Lymphocytes (%) (Auto) 4 % (24-48) 6 % (24-48) Monocytes (%) (Auto) 5 % (0-9) 6 % (0-9) Eosinophils (%) (Auto) 0 % (0-3) 0 % (0-3) Basophils (%) (Auto) 0 % (0-3) 0 % (0-3) Neutrophils # (Auto) 24.4 x10^3uL (1.8-7.7) 14.4 x10^3uL (1.8-7.7) Lymphocytes # (Auto) 1.1 x10^3/uL (1.0-4.8) 0.9 x10^3/uL (1.0-4.8) Monocytes # (Auto) 1.4 x10^3/uL (0.0-1.1) 1.0 x10^3/uL (0.0-1.1) Eosinophils # (Auto) 0.1 x10^3/uL (0.0-0.7) 0.0 x10^3/uL (0.0-0.7) Basophils # (Auto) 0.1 x10^3/uL (0.0-0.2) 0.0 x10^3/uL (0.0-0.2) Erythrocyte Sedimentation Rate 39 (0-25) Sodium Level 136 mmol/L (136-145) 139 mmol/L (136-145) Potassium Level 3.5 mmol/L (3.5-5.1) 3.0 mmol/L (3.5-5.1) Chloride Level 95 mmol/L (98-107) 101 mmol/L (98-107) Carbon Dioxide Level 24 mmol/L (21-32) 22 mmol/L (21-32) Anion Gap 17 (6-14) 16 (6-14) Blood Urea Nitrogen 18 mg/dL (7-20) 9 mg/dL (7-20) Creatinine 0.9 mg/dL (0.6-1.0) 0.7 mg/dL (0.6-1.0) Estimated GFR (Cockcroft-Gault) 82.7 110.5 BUN/Creatinine Ratio 20 (6-20) 13 (6-20) Glucose Level 165 mg/dL (70-99) 150 mg/dL (70-99) Calcium Level 9.8 mg/dL (8.5-10.1) 8.8 mg/dL (8.5-10.1) Total Bilirubin 0.8 mg/dL (0.2-1.0) 0.7 mg/dL (0.2-1.0) Aspartate Amino Transf (AST/SGOT) 28 U/L (15-37) 20 U/L (15-37) Alanine Aminotransferase (ALT/SGPT) 13 U/L (14-59) 11 U/L (14-59) Alkaline Phosphatase 82 U/L (46-116) 70 U/L (46-116) Total Protein 9.4 g/dL (6.4-8.2) 7.8 g/dL (6.4-8.2) Albumin 4.2 g/dL (3.4-5.0) 3.3 g/dL (3.4-5.0) Albumin/Globulin Ratio 0.8 (1.0-1.7) 0.7 (1.0-1.7) Lipase 71 U/L (73-393) Ethyl Alcohol Level < 10 mg/dL (0-10) Lactic Acid Level 1.7 mmol/L (0.4-2.0) Segmented Neutrophils % 87 % (35-66) Band Neutrophils % 1 % (0-9) Lymphocytes % 8 % (24-48) Monocytes % 4 % (0-10) Platelet Estimate Adequate (ADEQUATE) Allergies: Coded Allergies: metoclopramide (Verified Allergy, Intermediate, 09/11/18) Medications: Current Medications Medications (Trade) Dose Ordered Sig/Brandon Route PRN Reason Start Time Stop Time Status Last Admin Dose Admin Sodium Chloride 1,000 ml @ 1,000 mls/hr 1X ONCE IV 09/11/18 14:00 09/11/18 14:59 DC 09/11/18 14:06 Famotidine (Pepcid Vial) 20 mg 1X ONCE IVP 09/11/18 14:00 09/11/18 14:01 DC 09/11/18 14:06 Ondansetron HCl (Zofran) 4 mg 1X ONCE IV 09/11/18 14:00 09/11/18 14:01 DC 09/11/18 14:06 Prochlorperazine Edisylate (Compazine) 10 mg 1X ONCE IV 09/11/18 14:00 09/11/18 14:01 DC 09/11/18 14:06 Iohexol (Omnipaque 300 Mg/ml) 75 ml 1X ONCE IV 09/11/18 15:30 09/11/18 15:31 DC 09/11/18 15:34 Sodium Chloride 1,000 ml @ 1,000 mls/hr 1X ONCE IV 09/11/18 15:30 09/11/18 16:29 DC 09/11/18 16:02 Ondansetron HCl (Zofran) 4 mg 1X ONCE IV 09/11/18 17:15 09/11/18 17:16 DC 09/11/18 17:13 Sodium Chloride 1,000 ml @ 125 mls/hr 1X ONCE IV 09/11/18 17:45 09/12/18 01:44 DC 09/11/18 18:52 Sodium Chloride 1,000 ml @ 100 mls/hr Q10H IV 09/12/18 02:00 09/12/18 01:31 Labetalol HCl (Normodyne Iv Push) 10 mg PRN Q2HR PRN IVP GIVE FOR SBP > 160 09/11/18 17:45 09/12/18 07:42 DC 09/12/18 04:15 Gabapentin (Neurontin) 100 mg BID PO 09/11/18 21:00 09/12/18 07:41 DC 09/11/18 22:26 Piperacillin Sod/ Tazobactam Sod 3.375 gm/Sodium Chloride 50 ml @ 100 mls/hr 1X ONCE IV 09/11/18 18:00 09/11/18 18:29 DC 09/11/18 18:32 Vancomycin HCl 2 gm/Sodium Chloride 500 ml @ 250 mls/hr 1X ONCE IV 09/11/18 18:00 09/11/18 19:59 DC 09/11/18 19:10 Fentanyl Citrate (Fentanyl 2ml Vial) 50 mcg PRN Q2HR PRN IV PAIN 09/11/18 21:30 09/12/18 07:54 Labetalol HCl (Normodyne Iv Push) 20 mg PRN Q2HR PRN IVP HYPERTENSION, SEE COMMENTS 09/12/18 07:45 09/12/18 08:47 Imaging: Imaging: CXR Impression: Negative portable chest. CT A/P IMPRESSION: 1. No acute abnormality of abdomen or pelvis. Normal appendix. 2. Mild patchy groundglass passive both lung bases, nonspecific. Consider infectious or inflammatory etiology. PE: GEN: NAD, up to chair HEENT: Atraumatic, PERRL LUNGS: CTAB HEART: RRR ABD: NABS, S/ND, epigastric tenderness EXTREMITY: right BKA w/ prosthesis SKIN: No rashes, no jaundice NEURO/PSYCH: A & O 3 A/P: A/P: Recurrent n/v, abd pain - now occurring monthly Diarrhea - improved, h/o irregular bowel habits H/o gastroparesis and GERD CRC screen - average risk Leukocytosis (improved), anemia (Hgb above average), hypokalemia HTN, chronic pain on Percocet - per primary -- Plans for GES today, await results. Had normal GB US in 2017, consider HIDA later on if indicated. Add acid-process improvement analyst, consider EGD at some point (can pursue as outpt). Check anemia parameters. Okay to resume PO after GES per GI. ART FIGUEROA Sep 12, 2018 10:29
[2018-09-12 11:00] VITALS: BP 176/108
[2018-09-12] MEDS: PANTOPRAZOLE 40 MG TABLET.DR. PO SCH (11:30)
[2018-09-12] MEDS: ONDANSETRON PF 4 MG/2 ML VIAL. IV PRN ×2 (11:56→19:40)
--- NOTE | 2018-09-12 14:21 | RAD ---
EXAM: Nuclear gastric emptying scan. HISTORY: Gastroparesis. COMPARISON: None. TECHNIQUE: Serial static images were obtained over the stomach following oral administration of 2.1 mCi of 99m-Tc sulfur colloid in an egg based meal. FINDINGS: The stomach empties into the small bowel without evidence of reflux in the area of the esophagus. The estimated time for half emptying of gastric contents, i.e. 'gastric emptying time' is 58 minutes (normal is 66 +/- 22 minutes). There is 49 percent retained tracer activity within the stomach at one hour, 13 percent retained tracer activity within the stomach at 2 hours, 16 percent retained tracer activity within the stomach at 3 hours and 13 percent retained tracer activity within the stomach at 4 hours. IMPRESSION: 1. Normal gastric emptying half-time. 2. Slightly delayed of gastric emptying at the 4 hour interval. The gastric emptying is within normal limits at 1 hour, 2 hours and 3 hours. Electronically signed by: Tara Martinez MD (09/12/2018 2:18 PM) [id number]
[2018-09-12 14:34] VITALS: BP 196/123
--- NOTE | 2018-09-12 14:47 | NUR ---
SW following for discharge planning. Discussed with RN, pt having an emptying study today. No SW needs. SW will continue to follow.
[2018-09-12 19:00] VITALS: BP 185/108
[2018-09-12] MEDS ORDERED: ATORVASTATIN CALCIUM 20 MG TABLET PO SCH (21:00)
--- NOTE | 2018-09-12 22:00 | PDOC ---
PROGRESS NOTES Chief Complaint Chief Complaint Assessment/Plan Possibly another attack of gastroparesis Cyclic vomiting syndrome history Diabetes off insulin or OHA because of good hemoglobin A1c Narcotic tolerant Leukocytosis etiology undetermined Reactive thrombocyte doses, platelets 409 Plan: nothing by mouth, hydrate, so far lytes are okay Okay to have sips with meds Labetolol when necessary for accelerated hypertension Check a gastric emptying test today allergic to reglan and erythromycin will consult GI No signs of obstruction on CAT scan: Monitor that leukocytosis and thrombocytosis mildly elevated sedimentation rate, no clincial significance in my opinion History of Present Illness History of Present Illness In acute distress, follows at and has a established GI there. she was visiting her mother in the community reason why she consulted to our hospital yesterday. Mostly complaining of pain and nuasea Vitals Vitals Vital Signs Date Time Temp Pulse Resp B/P (MAP) Pulse Ox O2 Delivery O2 Flow Rate FiO2 09/12/18 19:00 98.6 97 18 185/108 (133) 98 Room Air 98.6 Physical Exam General: Alert, Oriented X3, Cooperative, Other (curling up with bucket at bedside) Lungs: Clear Abdomen: Normal bowel sounds, Soft, No hepatosplenomegaly, No masses, Other ( voluntary guarding on my palpation but soft no rebound) Extremities: No clubbing, No cyanosis, No edema, Normal pulses, No tenderness/ swelling Skin: No rashes, No breakdown, No significant lesion Labs LABS Laboratory Tests Test 09/12/18 06:53 White Blood Count 16.3 x10^3/uL (4.0-11.0) Red Blood Count 4.16 x10^6/uL (3.50-5.40) Hemoglobin 11.7 g/dL (12.0-15.5) Hematocrit 34.9 % (36.0-47.0) Mean Corpuscular Volume 84 fL (79-100) Mean Corpuscular Hemoglobin 28 pg (25-35) Mean Corpuscular Hemoglobin Concent 34 g/dL (31-37) Red Cell Distribution Width 16.7 % (11.5-14.5) Platelet Count 309 x10^3/uL (140-400) Neutrophils (%) (Auto) 88 % (31-73) Lymphocytes (%) (Auto) 6 % (24-48) Monocytes (%) (Auto) 6 % (0-9) Eosinophils (%) (Auto) 0 % (0-3) Basophils (%) (Auto) 0 % (0-3) Neutrophils # (Auto) 14.4 x10^3uL (1.8-7.7) Lymphocytes # (Auto) 0.9 x10^3/uL (1.0-4.8) Monocytes # (Auto) 1.0 x10^3/uL (0.0-1.1) Eosinophils # (Auto) 0.0 x10^3/uL (0.0-0.7) Basophils # (Auto) 0.0 x10^3/uL (0.0-0.2) Segmented Neutrophils % 87 % (35-66) Band Neutrophils % 1 % (0-9) Lymphocytes % 8 % (24-48) Monocytes % 4 % (0-10) Platelet Estimate Adequate (ADEQUATE) Reticulocyte Count (auto) 2.6 % (0.5-2.5) Sodium Level 139 mmol/L (136-145) Potassium Level 3.0 mmol/L (3.5-5.1) Chloride Level 101 mmol/L (98-107) Carbon Dioxide Level 22 mmol/L (21-32) Anion Gap 16 (6-14) Blood Urea Nitrogen 9 mg/dL (7-20) Creatinine 0.7 mg/dL (0.6-1.0) Estimated GFR (Cockcroft-Gault) 110.5 BUN/Creatinine Ratio 13 (6-20) Glucose Level 150 mg/dL (70-99) Calcium Level 8.8 mg/dL (8.5-10.1) Iron Level 24 ug/dL (50-170) Total Iron Binding Capacity 327 ug/dL (250-450) Iron Saturation 7 % (15-34) Total Bilirubin 0.7 mg/dL (0.2-1.0) Aspartate Amino Transf (AST/SGOT) 20 U/L (15-37) Alanine Aminotransferase (ALT/SGPT) 11 U/L (14-59) Alkaline Phosphatase 70 U/L (46-116) Total Protein 7.8 g/dL (6.4-8.2) Albumin 3.3 g/dL (3.4-5.0) Albumin/Globulin Ratio 0.7 (1.0-1.7) Vitamin B12 Level 1277 pg/mL (247-911) Assessment and Plan Assessmemt and Plan Problems Medical Problems: (1) Gastroparesis Status: Acute (2) Hypertension Status: Acute Comment Review of Relevant I have reviewed the following items lenard (where applicable) has been applied. Labs Laboratory Tests Test 09/11/18 13:55 09/11/18 20:25 09/12/18 06:53 White Blood Count 27.1 x10^3/uL (4.0-11.0) 16.3 x10^3/uL (4.0-11.0) Red Blood Count 4.89 x10^6/uL (3.50-5.40) 4.16 x10^6/uL (3.50-5.40) Hemoglobin 13.6 g/dL (12.0-15.5) 11.7 g/dL (12.0-15.5) Hematocrit 40.4 % (36.0-47.0) 34.9 % (36.0-47.0) Mean Corpuscular Volume 83 fL (79-100) 84 fL (79-100) Mean Corpuscular Hemoglobin 28 pg (25-35) 28 pg (25-35) Mean Corpuscular Hemoglobin Concent 34 g/dL (31-37) 34 g/dL (31-37) Red Cell Distribution Width 16.5 % (11.5-14.5) 16.7 % (11.5-14.5) Platelet Count 409 x10^3/uL (140-400) 309 x10^3/uL (140-400) Neutrophils (%) (Auto) 90 % (31-73) 88 % (31-73) Lymphocytes (%) (Auto) 4 % (24-48) 6 % (24-48) Monocytes (%) (Auto) 5 % (0-9) 6 % (0-9) Eosinophils (%) (Auto) 0 % (0-3) 0 % (0-3) Basophils (%) (Auto) 0 % (0-3) 0 % (0-3) Neutrophils # (Auto) 24.4 x10^3uL (1.8-7.7) 14.4 x10^3uL (1.8-7.7) Lymphocytes # (Auto) 1.1 x10^3/uL (1.0-4.8) 0.9 x10^3/uL (1.0-4.8) Monocytes # (Auto) 1.4 x10^3/uL (0.0-1.1) 1.0 x10^3/uL (0.0-1.1) Eosinophils # (Auto) 0.1 x10^3/uL (0.0-0.7) 0.0 x10^3/uL (0.0-0.7) Basophils # (Auto) 0.1 x10^3/uL (0.0-0.2) 0.0 x10^3/uL (0.0-0.2) Erythrocyte Sedimentation Rate 39 (0-25) Sodium Level 136 mmol/L (136-145) 139 mmol/L (136-145) Potassium Level 3.5 mmol/L (3.5-5.1) 3.0 mmol/L (3.5-5.1) Chloride Level 95 mmol/L (98-107) 101 mmol/L (98-107) Carbon Dioxide Level 24 mmol/L (21-32) 22 mmol/L (21-32) Anion Gap 17 (6-14) 16 (6-14) Blood Urea Nitrogen 18 mg/dL (7-20) 9 mg/dL (7-20) Creatinine 0.9 mg/dL (0.6-1.0) 0.7 mg/dL (0.6-1.0) Estimated GFR (Cockcroft-Gault) 82.7 110.5 BUN/Creatinine Ratio 20 (6-20) 13 (6-20) Glucose Level 165 mg/dL (70-99) 150 mg/dL (70-99) Calcium Level 9.8 mg/dL (8.5-10.1) 8.8 mg/dL (8.5-10.1) Total Bilirubin 0.8 mg/dL (0.2-1.0) 0.7 mg/dL (0.2-1.0) Aspartate Amino Transf (AST/SGOT) 28 U/L (15-37) 20 U/L (15-37) Alanine Aminotransferase (ALT/SGPT) 13 U/L (14-59) 11 U/L (14-59) Alkaline Phosphatase 82 U/L (46-116) 70 U/L (46-116) Total Protein 9.4 g/dL (6.4-8.2) 7.8 g/dL (6.4-8.2) Albumin 4.2 g/dL (3.4-5.0) 3.3 g/dL (3.4-5.0) Albumin/Globulin Ratio 0.8 (1.0-1.7) 0.7 (1.0-1.7) Lipase 71 U/L (73-393) Ethyl Alcohol Level < 10 mg/dL (0-10) Lactic Acid Level 1.7 mmol/L (0.4-2.0) Segmented Neutrophils % 87 % (35-66) Band Neutrophils % 1 % (0-9) Lymphocytes % 8 % (24-48) Monocytes % 4 % (0-10) Platelet Estimate Adequate (ADEQUATE) Reticulocyte Count (auto) 2.6 % (0.5-2.5) Iron Level 24 ug/dL (50-170) Total Iron Binding Capacity 327 ug/dL (250-450) Iron Saturation 7 % (15-34) Vitamin B12 Level 1277 pg/mL (247-911) Laboratory Tests Test 09/12/18 06:53 White Blood Count 16.3 x10^3/uL (4.0-11.0) Red Blood Count 4.16 x10^6/uL (3.50-5.40) Hemoglobin 11.7 g/dL (12.0-15.5) Hematocrit 34.9 % (36.0-47.0) Mean Corpuscular Volume 84 fL (79-100) Mean Corpuscular Hemoglobin 28 pg (25-35) Mean Corpuscular Hemoglobin Concent 34 g/dL (31-37) Red Cell Distribution Width 16.7 % (11.5-14.5) Platelet Count 309 x10^3/uL (140-400) Neutrophils (%) (Auto) 88 % (31-73) Lymphocytes (%) (Auto) 6 % (24-48) Monocytes (%) (Auto) 6 % (0-9) Eosinophils (%) (Auto) 0 % (0-3) Basophils (%) (Auto) 0 % (0-3) Neutrophils # (Auto) 14.4 x10^3uL (1.8-7.7) Lymphocytes # (Auto) 0.9 x10^3/uL (1.0-4.8) Monocytes # (Auto) 1.0 x10^3/uL (0.0-1.1) Eosinophils # (Auto) 0.0 x10^3/uL (0.0-0.7) Basophils # (Auto) 0.0 x10^3/uL (0.0-0.2) Segmented Neutrophils % 87 % (35-66) Band Neutrophils % 1 % (0-9) Lymphocytes % 8 % (24-48) Monocytes % 4 % (0-10) Platelet Estimate Adequate (ADEQUATE) Reticulocyte Count (auto) 2.6 % (0.5-2.5) Sodium Level 139 mmol/L (136-145) Potassium Level 3.0 mmol/L (3.5-5.1) Chloride Level 101 mmol/L (98-107) Carbon Dioxide Level 22 mmol/L (21-32) Anion Gap 16 (6-14) Blood Urea Nitrogen 9 mg/dL (7-20) Creatinine 0.7 mg/dL (0.6-1.0) Estimated GFR (Cockcroft-Gault) 110.5 BUN/Creatinine Ratio 13 (6-20) Glucose Level 150 mg/dL (70-99) Calcium Level 8.8 mg/dL (8.5-10.1) Iron Level 24 ug/dL (50-170) Total Iron Binding Capacity 327 ug/dL (250-450) Iron Saturation 7 % (15-34) Total Bilirubin 0.7 mg/dL (0.2-1.0) Aspartate Amino Transf (AST/SGOT) 20 U/L (15-37) Alanine Aminotransferase (ALT/SGPT) 11 U/L (14-59) Alkaline Phosphatase 70 U/L (46-116) Total Protein 7.8 g/dL (6.4-8.2) Albumin 3.3 g/dL (3.4-5.0) Albumin/Globulin Ratio 0.7 (1.0-1.7) Vitamin B12 Level 1277 pg/mL (247-911) Microbiology 09/11/18 Blood Culture - Preliminary, Resulted NO GROWTH AFTER 1 DAY Medications Current Medications Sodium Chloride 1,000 ml @ 1,000 mls/hr 1X ONCE IV Last administered on at 14:06; Start 09/11/18 at 14:00; Stop 09/11/18 at 14:59; Status DC Famotidine (Pepcid Vial) 20 mg 1X ONCE IVP Last administered on 09/11/18at 14: 06; Start 09/11/18 at 14:00; Stop 09/11/18 at 14:01; Status DC Ondansetron HCl (Zofran) 4 mg 1X ONCE IV Last administered on 09/11/18at 14:06 ; Start 09/11/18 at 14:00; Stop 09/11/18 at 14:01; Status DC Prochlorperazine Edisylate (Compazine) 10 mg 1X ONCE IV Last administered on at 14:06; Start 09/11/18 at 14:00; Stop 09/11/18 at 14:01; Status DC Iohexol (Omnipaque 300 Mg/ml) 75 ml 1X ONCE IV Last administered on 09/11/18at 15:34; Start 09/11/18 at 15:30; Stop 09/11/18 at 15:31; Status DC Sodium Chloride 1,000 ml @ 1,000 mls/hr 1X ONCE IV Last administered on at 16:02; Start 09/11/18 at 15:30; Stop 09/11/18 at 16:29; Status DC Metoclopramide HCl (Reglan Vial) 10 mg 1X ONCE IV ; Start 09/11/18 at 17:00; Stop 09/11/18 at 17:01; Status DC Ondansetron HCl (Zofran) 4 mg 1X ONCE IV Last administered on 09/11/18at 17:13 ; Start 09/11/18 at 17:15; Stop 09/11/18 at 17:16; Status DC Ondansetron HCl (Zofran) 4 mg PRN Q8HRS PRN IV NAUSEA/VOMITING; Start 09/11/18 at 17:45; Stop 09/11/18 at 17:45; Status DC Prochlorperazine Edisylate (Compazine) 10 mg TID PRN IV NAUSEA; Start 09/11/18 at 17:45; Stop 09/11/18 at 17:46; Status DC Sodium Chloride 1,000 ml @ 125 mls/hr 1X ONCE IV Last administered on 18:52; Start 09/11/18 at 17:45; Stop 09/12/18 at 01:44; Status DC Ondansetron HCl (Zofran) 4 mg PRN Q6HRS PRN IV NAUSEA/VOMITING; Start 09/11/18 at 17:45; Status UNV Ondansetron HCl (Zofran) 4 mg PRN Q6HRS PRN IV NAUSEA/VOMITING Last administered on 09/12/18at 19:40; Start 09/11/18 at 17:45 Metoclopramide HCl (Reglan) 5 mg TIDACHC PO ; Start 09/11/18 at 21:00 Sodium Chloride 1,000 ml @ 100 mls/hr Q10H IV Last administered on 09/12/18at 17:44; Start 09/12/18 at 02:00 Labetalol HCl (Normodyne Iv Push) 10 mg PRN Q2HR PRN IVP GIVE FOR SBP > 160 Last administered on 09/12/18at 04:15; Start 09/11/18 at 17:45; Stop 09/12/18 at 07:42; Status DC Amlodipine Besylate (Norvasc) 10 mg DAILY PO Last administered on 09/12/18 17: 39; Start 09/12/18 at 09:00 Carvedilol (Coreg) 12.5 mg BIDWMEALS PO ; Start 09/12/18 at 08:00; Stop at 08:00; Status DC Gabapentin (Neurontin) 100 mg BID PO Last administered on 09/11/18at 22:26; Start 09/11/18 at 21:00; Stop 09/12/18 at 07:41; Status DC Sertraline HCl (Zoloft) 50 mg DAILY PO ; Start 09/12/18 at 09:00 Piperacillin Sod/ Tazobactam Sod 3.375 gm/Sodium Chloride 50 ml @ 100 mls/hr 1X ONCE IV Last administered on 09/11/18at 18:32; Start 09/11/18 at 18:00; Stop 09/11/18 at 18:29; Status DC Vancomycin HCl (Vanco Per Pharmacy) 1 each PRN DAILY PRN MC SEE COMMENTS; Start 09/11/18 at 18:00; Status UNV Vancomycin HCl 2 gm/Sodium Chloride 500 ml @ 250 mls/hr 1X ONCE IV Last administered on 09/11/18 19:10; Start 09/11/18 at 18:00; Stop 09/11/18 at 19:59 ; Status DC Fentanyl Citrate (Fentanyl 2ml Vial) 50 mcg PRN Q2HR PRN IV PAIN Last administered on 09/12/18 15:11; Start 09/11/18 at 21:30 Amlodipine Besylate (Norvasc) 10 mg DAILY PO ; Start 09/12/18 at 09:00; Status UNV Atorvastatin Calcium (Lipitor) 20 mg QHS PO ; Start 09/12/18 at 21:00 Carvedilol (Coreg) 6.25 mg BIDWMEALS PO Last administered on 09/12/18 15:11; Start 09/12/18 at 08:00 Gabapentin (Neurontin) 100 mg TID PO Last administered on 09/12/18at 15:11; Start 09/12/18 at 09:00 Oxycodone/ Acetaminophen (Percocet 5/325) 1 tab QID PO Last administered on 06/21at 17:40; Start 09/12/18 at 09:00 Losartan Potassium (Cozaar) 100 mg DAILY PO Last administered on 09/12/18 17: 40; Start 09/12/18 at 09:00 Labetalol HCl (Normodyne Iv Push) 20 mg PRN Q2HR PRN IVP HYPERTENSION, SEE COMMENTS Last administered on 09/12/18at 08:47; Start 09/12/18 at 07:45 Hydrochlorothiazide (Microzide) 12.5 mg DAILY PO ; Start 09/12/18 at 09:00 Pantoprazole Sodium (Protonix) 40 mg DAILYAC PO ; Start 09/12/18 at 11:30 Active Scripts [facility] [place] 5-325 Tablet (Acetaminophen/Hydrocodone Bitart) 1 Each Tablet 1-2 Tab PO Q4-6HRS Phenergan (Promethazine HCl) 25 Mg Supp.rect 25 Mg RC PRN Q6-8HRS PRN Reported Novolog (Insulin Aspart) 100 Unit/1 Ml Cartridge 8 Unit SQ TIDAFTMEAL PRN Percocet 5-325 Mg Tablet (Oxycodone/Acetaminophen) 1 Each Tablet 1 Tab PO QID Coreg (Carvedilol) 6.25 Mg Tablet 1 Tab PO BID Lipitor (Atorvastatin Calcium) 20 Mg Tablet 1 Tab PO DAILY Losartan-Hctz 100-12.5 Mg Tab (Losartan/Hydrochlorothiazide) 1 Each Tablet 1 Tab PO DAILY Gabapentin (Gabapentin) 100 Mg Capsule 100 Mg PO TID Zofran Odt (Ondansetron) 4 Mg Tab.rapdis 1 Tab SL Q8HRS Norvasc (Amlodipine Besylate) 10 Mg Tablet 10 Mg PO DAILY Metformin Hcl 1,000 Mg Tablet 1,000 Mg PO [id number] Vitals/I & O Vital Sign - Last 24 Hours 09/11/18 09/12/18 09/12/18 09/12/18 23:25 00:39 00:46 03:25 Temp 98.8 98.3 98.8 98.3 Pulse 119 119 112 Resp 20 20 20 B/P (MAP) 195/116 (142) 195/116 186/115 (138) Pulse Ox 100 100 O2 Delivery Room Air Room Air Room Air 09/12/18 09/12/18 09/12/18 09/12/18 04:15 07:00 07:54 08:00 Temp 98.4 98.4 Pulse 112 107 107 Resp 18 18 B/P (MAP) 186/115 177/109 (131) 177/109 Pulse Ox 100 O2 Delivery Room Air Room Air 09/12/18 09/12/18 09/12/18 09/12/18 08:00 08:24 08:47 11:00 Temp 98.2 98.2 Pulse 107 96 Resp 20 B/P (MAP) 177/109 176/108 (130) Pulse Ox 100 100 O2 Delivery Room Air Room Air Room Air 09/12/18 09/12/18 09/12/18 09/12/18 12:05 14:34 15:11 15:11 Temp 98.2 98.2 Pulse 104 104 Resp 20 18 B/P (MAP) 196/123 (147) 196/123 Pulse Ox 100 100 100 O2 Delivery Room Air Room Air 09/12/18 09/12/18 09/12/18 09/12/18 15:41 17:39 17:40 17:40 Pulse 104 104 Resp 14 16 B/P (MAP) 196/123 196/123 Pulse Ox 100 3/12/19 3/12/19 18:40 19:00 Temp 98.6 98.6 Pulse 97 Resp 14 18 B/P (MAP) 185/108 (133) Pulse Ox 100 98 O2 Delivery Room Air Room Air Intake and Output 09/11/18 09/11/18 09/12/18 15:00 23:00 07:00 Intake Total 2550 ml 1000 ml Balance 2550 ml 1000 ml MARY KRISHNA MD Sep 12, 2018 22:00
[2018-09-12 22:35] VITALS: BP 143/107
[2018-09-13 03:00] VITALS: BP 153/88
[2018-09-13] MEDS: METOCLOPRAMIDE 5 MG TABLET. PO SCH ×2 (05:43→11:30)
[2018-09-13] MEDS: PANTOPRAZOLE 40 MG TABLET.DR. PO SCH (06:32)
[2018-09-13 06:35] VITALS: BP 150/99
[2018-09-13 07:00] LABS: BILIRUBIN,URINE NEGATIVE (NEG); CLARITY,URINE CLEAR; COLOR,URINE YELLOW; NITRITE,URINE NEGATIVE (NEG); PH,URINE 7.5; PROTEIN,URINE NEGATIVE (NEG-TRACE); UROBILINOGEN,URINE 0.2 mg/dL (0.2 mg/dL)
[2018-09-13 07:06] LABS: SQUAMOUS EPITHELIAL CELL,UR MOD /LPF; WBC,URINE OCC /HPF (0-4)
[2018-09-13 07:07] LABS: BACTERIA,URINE FEW /HPF (0-FEW)
[2018-09-13 07:18] LABS: BARBITURATES NEG (NEG); BENZODIAZEPINES NEG (NEG); CANNABINOIDS POS (NEG); COCAINE NEG (NEG); METHADONE NEG (NEG); OPIATES NEG (NEG); PHENCYCLIDINE NEG (NEG)
[2018-09-13 07:23] LABS: AMPHETAMINE/METHAMPHETAMINE NEG (NEG)
[2018-09-13] MEDS: IV NORMAL SALINE 1000ML BAG 1,000 ML IV SCH (08:27)
[2018-09-13] MEDS: CARVEDILOL 6.25 MG TABLET. PO SCH (08:27)
--- NOTE | 2018-09-13 09:16 | NUR ---
SW following for discharge planning. Discussed with RN, pt is feeling better and may be able to discharge home if can tolerate diet today. Rn advised no SW needs.
[2018-09-13] MEDS: hydroCHLOROthiazide 12.5 MG CAPSULE PO SCH (10:17)
[2018-09-13] MEDS: GABAPENTIN 100 MG CAPSULE. PO SCH ×2 (10:17→14:07)
[2018-09-13] MEDS: SERTRALINE 50 MG TABLET. PO SCH (10:17)
[2018-09-13] MEDS: oxyCODONE/APAP 5/325 1 TAB TABLET PO SCH ×2 (10:18→14:07)
[2018-09-13] MEDS: LOSARTAN POTASSIUM 50 MG TABLET. PO SCH (10:18)
--- NOTE | 2018-09-13 10:57 | PDOC ---
Subjective: Subjective: Tolerating regular diet w/o n/v or abd pain. Does have back pain. Wants to discharge. Objective: Vital Signs: Vital Signs Date Time Temp Pulse Resp B/P (MAP) Pulse Ox O2 Delivery O2 Flow Rate FiO2 09/13/18 10:18 99 150/99 09/13/18 10:18 14 99 Room Air 09/13/18 06:35 98.4 98.4 Labs: Laboratory Tests Test 09/13/18 05:00 Urine Collection Type Unknown Urine Color Yellow Urine Clarity Clear Urine pH 7.5 Urine Specific [place] <=1.005 Urine Protein Negative mg/dL Urine Glucose (UA) Negative mg/dL Urine Ketones (Stick) Negative mg/dL Urine Blood Negative Urine Nitrite Negative Urine Bilirubin Negative Urine Urobilinogen Dipstick 0.2 mg/dL Urine Leukocyte Esterase Negative Urine RBC 1-2 /HPF Urine WBC Occ /HPF Urine Squamous Epithelial Cells Mod /LPF Urine Bacteria Few /HPF Urine Opiates Screen Neg Urine Methadone Screen Neg Urine Barbiturates Neg Urine Phencyclidine Screen Neg Urine Amphetamine/Methamphetamine Neg Urine Benzodiazepines Screen Neg Urine Cocaine Screen Neg Urine Cannabinoids Screen Pos Urine Ethyl Alcohol Neg BLOOD CULTURE Preliminary NO GROWTH AFTER 1 DAY Imaging: GES 09/12/18 IMPRESSION: 1. Normal gastric emptying half-time. 2. Slightly delayed of gastric emptying at the 4 hour interval. The gastric emptying is within normal limits at 1 hour, 2 hours and 3 hours. PE: GEN: NAD LUNGS: CTAB HEART: RRR ABD: NABS, S/ND/NT NEURO/PSYCH: A & O 3 A/P: Recurrent n/v, abd pain - resolved H/o gastroparesis - repeat GES as above w/ only slight delay at 4 hr H/o GERD - not bothersome recently SANJAY, hypokalemia +marijuana -- Okay to DC per GI and follow-up for outpt HIDA. 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 Stop marijuana. ART FIGUEROA Sep 13, 2018 10:57
[2018-09-13 11:00] VITALS: BP 160/100
[2018-09-13] MEDS ORDERED: ONDA4TAB7 PO (13:23)
--- NOTE | 2018-09-13 13:25 | PDOC3 ---
Discharge Summary Visit Information Date of Admission: Sep 11, 2018 Date of Discharge: Sep 13, 2018 Admitting Diagnosis: abd pain Final Diagnosis Problems Medical Problems: (1) Gastroparesis Status: Acute (2) Hypertension Status: Acute Brief Hospital Course Allergies Allergies Coded Allergies Type Severity Reaction Last Updated Verified metoclopramide Allergy Intermediate 09/11/18 Yes Vital Signs Vital Signs Date Time Temp Pulse Resp B/P (MAP) Pulse Ox O2 Delivery O2 Flow Rate FiO2 09/13/18 11:18 14 99 Room Air 09/13/18 11:00 98.7 61 160/100 (120) 98.7 Lab Results Laboratory Tests Test 09/11/18 13:55 09/11/18 20:25 09/12/18 06:53 09/13/18 05:00 White Blood Count 27.1 x10^3/uL (4.0-11.0) 16.3 x10^3/uL (4.0-11.0) Red Blood Count 4.89 x10^6/uL (3.50-5.40) 4.16 x10^6/uL (3.50-5.40) Hemoglobin 13.6 g/dL (12.0-15.5) 11.7 g/dL (12.0-15.5) Hematocrit 40.4 % (36.0-47.0) 34.9 % (36.0-47.0) Mean Corpuscular Volume 83 fL (79-100) 84 fL (79-100) Mean Corpuscular Hemoglobin 28 pg (25-35) 28 pg (25-35) Mean Corpuscular Hemoglobin Concent 34 g/dL (31-37) 34 g/dL (31-37) Red Cell Distribution Width 16.5 % (11.5-14.5) 16.7 % (11.5-14.5) Platelet Count 409 x10^3/uL (140-400) 309 x10^3/uL (140-400) Neutrophils (%) (Auto) 90 % (31-73) 88 % (31-73) Lymphocytes (%) (Auto) 4 % (24-48) 6 % (24-48) Monocytes (%) (Auto) 5 % (0-9) 6 % (0-9) Eosinophils (%) (Auto) 0 % (0-3) 0 % (0-3) Basophils (%) (Auto) 0 % (0-3) 0 % (0-3) Neutrophils # (Auto) 24.4 x10^3uL (1.8-7.7) 14.4 x10^3uL (1.8-7.7) Lymphocytes # (Auto) 1.1 x10^3/uL (1.0-4.8) 0.9 x10^3/uL (1.0-4.8) Monocytes # (Auto) 1.4 x10^3/uL (0.0-1.1) 1.0 x10^3/uL (0.0-1.1) Eosinophils # (Auto) 0.1 x10^3/uL (0.0-0.7) 0.0 x10^3/uL (0.0-0.7) Basophils # (Auto) 0.1 x10^3/uL (0.0-0.2) 0.0 x10^3/uL (0.0-0.2) Erythrocyte Sedimentation Rate 39 (0-25) Sodium Level 136 mmol/L (136-145) 139 mmol/L (136-145) Potassium Level 3.5 mmol/L (3.5-5.1) 3.0 mmol/L (3.5-5.1) Chloride Level 95 mmol/L (98-107) 101 mmol/L (98-107) Carbon Dioxide Level 24 mmol/L (21-32) 22 mmol/L (21-32) Anion Gap 17 (6-14) 16 (6-14) Blood Urea Nitrogen 18 mg/dL (7-20) 9 mg/dL (7-20) Creatinine 0.9 mg/dL (0.6-1.0) 0.7 mg/dL (0.6-1.0) Estimated GFR (Cockcroft-Gault) 82.7 110.5 BUN/Creatinine Ratio 20 (6-20) 13 (6-20) Glucose Level 165 mg/dL (70-99) 150 mg/dL (70-99) Calcium Level 9.8 mg/dL (8.5-10.1) 8.8 mg/dL (8.5-10.1) Total Bilirubin 0.8 mg/dL (0.2-1.0) 0.7 mg/dL (0.2-1.0) Aspartate Amino Transf (AST/SGOT) 28 U/L (15-37) 20 U/L (15-37) Alanine Aminotransferase (ALT/SGPT) 13 U/L (14-59) 11 U/L (14-59) Alkaline Phosphatase 82 U/L (46-116) 70 U/L (46-116) Total Protein 9.4 g/dL (6.4-8.2) 7.8 g/dL (6.4-8.2) Albumin 4.2 g/dL (3.4-5.0) 3.3 g/dL (3.4-5.0) Albumin/Globulin Ratio 0.8 (1.0-1.7) 0.7 (1.0-1.7) Lipase 71 U/L (73-393) Ethyl Alcohol Level < 10 mg/dL (0-10) Lactic Acid Level 1.7 mmol/L (0.4-2.0) Segmented Neutrophils % 87 % (35-66) Band Neutrophils % 1 % (0-9) Lymphocytes % 8 % (24-48) Monocytes % 4 % (0-10) Platelet Estimate Adequate (ADEQUATE) Reticulocyte Count (auto) 2.6 % (0.5-2.5) Iron Level 24 ug/dL (50-170) Total Iron Binding Capacity 327 ug/dL (250-450) Iron Saturation 7 % (15-34) Vitamin B12 Level 1277 pg/mL (247-911) Urine Collection Type Unknown Urine Color Yellow Urine Clarity Clear Urine pH 7.5 Urine Specific [place] <=1.005 Urine Protein Negative mg/dL (NEG-TRACE) Urine Glucose (UA) Negative mg/dL (NEG) Urine Ketones (Stick) Negative mg/dL (NEG) Urine Blood Negative (NEG) Urine Nitrite Negative (NEG) Urine Bilirubin Negative (NEG) Urine Urobilinogen Dipstick 0.2 mg/dL (0.2 mg/dL) Urine Leukocyte Esterase Negative (NEG) Urine RBC 1-2 /HPF (0-2) Urine WBC Occ /HPF (0-4) Urine Squamous Epithelial Cells Mod /LPF Urine Bacteria Few /HPF (0-FEW) Urine Opiates Screen Neg (NEG) Urine Methadone Screen Neg (NEG) Urine Barbiturates Neg (NEG) Urine Phencyclidine Screen Neg (NEG) Urine Amphetamine/Methamphetamine Neg (NEG) Urine Benzodiazepines Screen Neg (NEG) Urine Cocaine Screen Neg (NEG) Urine Cannabinoids Screen Pos (NEG) Urine Ethyl Alcohol Neg (NEG) Laboratory Tests Test 09/13/18 05:00 Urine Collection Type Unknown Urine Color Yellow Urine Clarity Clear Urine pH 7.5 Urine Specific [place] <=1.005 Urine Protein Negative mg/dL (NEG-TRACE) Urine Glucose (UA) Negative mg/dL (NEG) Urine Ketones (Stick) Negative mg/dL (NEG) Urine Blood Negative (NEG) Urine Nitrite Negative (NEG) Urine Bilirubin Negative (NEG) Urine Urobilinogen Dipstick 0.2 mg/dL (0.2 mg/dL) Urine Leukocyte Esterase Negative (NEG) Urine RBC 1-2 /HPF (0-2) Urine WBC Occ /HPF (0-4) Urine Squamous Epithelial Cells Mod /LPF Urine Bacteria Few /HPF (0-FEW) Urine Opiates Screen Neg (NEG) Urine Methadone Screen Neg (NEG) Urine Barbiturates Neg (NEG) Urine Phencyclidine Screen Neg (NEG) Urine Amphetamine/Methamphetamine Neg (NEG) Urine Benzodiazepines Screen Neg (NEG) Urine Cocaine Screen Neg (NEG) Urine Cannabinoids Screen Pos (NEG) Urine Ethyl Alcohol Neg (NEG) Brief Hospital Course Ms. Durham is a 42 old admit with nausea and vomiting and abd pain, acute exacerbation of gastroparesis Cyclic vomiting syndrome history Diabetes acute on chronic pain, pain meds at home made NPO, meds, iv fluid, discussed stopping THC intake GI consult followed, will scope outpatient Discharge Information Condition at Discharge: Improved Follow Up: Weeks Disposition/Orders: D/C to Home Scheduled Amlodipine Besylate (Norvasc) 10 Mg Tablet, 10 MG PO DAILY, (Reported) Entered as Reported by: DIALLO GO on 01/28/142126 Last Action: Continued on 09/12/1837 by MARY KRISHNA MD Atorvastatin Calcium (Lipitor) 20 Mg Tablet, 1 TAB PO DAILY, #90 Ref 3 (Reported ) Entered as Reported by: ADONAY RUSSELL on 01/07/17 0635 Last Action: Continued on 09/12/18 0737 by MARY KRISHNA MD Carvedilol (Coreg ) 6.25 Mg Tablet, 1 TAB PO BID, #180 Ref 1 (Reported) Entered as Reported by: ADONAY RUSSELL on 01/07/17634 Last Action: Continued on 09/12/18736 by MARY KRISHNA MD Gabapentin (Gabapentin ) 100 Mg Capsule, 100 MG PO TID, (Reported) Entered as Reported by: ADONAY RUSSELL on 01/07/17634 Last Action: Continued on 09/12/18736 by MARY KRISHNA MD Hydrocodone/Apap 5-325 ([place] 5-325 Tablet) 1 Each Tablet, 1-2 TAB PO Q4-6HRS, # 20 Prescribed by: BERTIN ROMAN MD on 03/29/17 0455 Insulin Aspart (Novolog) 100 Unit/1 Ml Cartridge, 8 UNIT SQ TIDAFTMEAL PRN, ( Reported) Entered as Reported by: ADONAY RUSSELL on 01/07/17634 Last Action: HELD on 09/12/18735 by MARY KRISHNA MD Losartan/Hydrochlorothiazide (Losartan-Hctz 100-12.5 Mg Tab) 1 Each Tablet, 1 TAB PO DAILY, #30 Ref 5 (Reported) Entered as Reported by: ADONAY RUSSELL on 01/07/17634 Last Action: Converted on 09/12/18736 by MARY KRISHNA MD Metformin Hcl (Metformin Hcl) 1,000 Mg Tablet, 1,000 MG PO DAILYWBKFT for ANTI- DIABETIC, Ref 0 (Reported) Entered as Reported by: DIALLO GO on 01/28/142126 Last Action: HELD on 09/12/18735 by MARY KRISHNA MD Ondansetron (Zofran Odt) 4 Mg Tab.rapdis, 1 TAB SL Q8HRS, #15 (Reported) Entered as Reported by: REY MCKEE on 02/11/15 2346 Ondansetron Hcl (Zofran) 4 Mg Tablet, 1 TAB PO Q8HRS for nausea, #30 Prescribed by: [place] ADAMES on 09/13/18 1323 Oxycodone/Apap 5-325 (Percocet 5-325 Mg Tablet ) 1 Each Tablet, 1 TAB PO QID, #120 (Reported) Entered as Reported by: ADONAY RUSSELL on 01/07/17634 Last Action: Continued on 09/12/18736 by MARY KRISHNA MD Scheduled PRN Promethazine HCl (Phenergan) 25 Mg Supp.rect, 25 MG RC PRN Q6-8HRS PRN for NAUSEA, #10 Prescribed by: BERTIN ROMAN MD on 03/29/17 0455 Patient Instructions Patient Instructions < 30 min face to face 10 min [place] ADAMES MD Sep 13, 2018 13:25
--- NOTE | 2018-09-13 15:28 | NUR ---
Discharge Note: PALAK STEWART [address] Discharge instructions and discharge home medications reviewed with Patient and a copy given. All questions have been answered and understanding verbalized. The following instructions and handouts were given: Discharge Instructions, Diabetes management Discontinued lines and drains: Right Forearm PIV, Catheter intact. Patient discharged to Home with Self-Care via Family Member Private Vehicle
== END 2018-09-13 15:00 | disposition home or self-care (01) | DRG 74 ==
LOC: ER 12:41 → 5 SOUTH 17:11
PROVIDERS: ADMIT Internal Medicine; ATTEND Internal Medicine
DX: E11.43 Type 2 diabetes mellitus with diabetic autonomic (poly)neuropathy (principal); K31.84 Gastroparesis; I10 Essential (primary) hypertension; E78.00 Pure hypercholesterolemia, unspecified; K21.9 Gastro-esophageal reflux disease without esophagitis; E87.6 Hypokalemia; G43.A0 Cyclical vomiting, in migraine, not intractable; G89.29 Other chronic pain; M79.606 Pain in leg, unspecified; F41.9 Anxiety disorder, unspecified; F32.9 Major depressive disorder, single episode, unspecified; Z89.511 Acquired absence of right leg below knee; Z82.49 Family history of ischemic heart disease and other diseases of the circulatory system; Z83.3 Family history of diabetes mellitus
CPT/HCPCS: 36415; 71045; 74177; 78264; 80053; 80307; 81001; 82607; 83540; 83550; 83605; 83690; 85007; 85025; 85045; 85651; 87040; 96361; 96365; 96375; 96376; A9541; G0480; J0780; J2405; J2543; J3010; J3370; J3490; J7030; J7040; Q9967; 99285-25